=== PATIENT | female | born 1985 | race Two or more races ===

== ENCOUNTER → 2024-07-17 | Emergency (ER) | payer BC ==
[~2024-07-17] VITALS: Ht 160 cm; Wt 68.0 kg
[~2024-07-17] MED LIST: KETOROLAC TROMETHAMINE 60 MG VIAL IM ONE
[2024-07-17 13:42] LABS: HEMATOCRIT 39.8 % (36.0-45.00); HEMOGLOBIN 13.3 g/dL (12.0-15.00); MEAN CELL VOLUME 88.6 fL (80.00-100.00); MEAN CORPUSCULAR HEMOGLOBIN 29.7 pg (27.00-32.0); MEAN CORPUSCULAR HGB CONC 33.5 g/dl (32.0-36.0); PLATELET COUNT 342 K/uL (150-450); RED BLOOD COUNT 4.49 M/uL (4.00-6.00); RED CELL DISTRIBUTION WIDTH 14.5 % (11.5-14.5)
== END | disposition left against medical advice (07) ==
LOC: ER 11:30
PROVIDERS: Emergency Medicine
DX: R10.2 Pelvic and perineal pain (principal); Z88.0 Allergy status to penicillin